=== PATIENT | male | born 1970 | race Caucasian/White ===

== ENCOUNTER 2023-06-20 16:09 | Emergency (ER) | payer BC, SELFPAY ==
[2023-06-20 16:19] VITALS: BP 132/85; PULSE 68; RESP 18; TEMP 36.8; O2SAT 99; BMI 25.8
--- NOTE | 2023-06-20 17:01 | CRLHL7_ITS ---
For Patients: As a result of the Century Cures Act, medical imaging exams and procedure reports are released immediately into your electronic medical record. You may view this report before your referring provider. If you have questions, please contact your health care provider. INDICATION: DIZZINESS TECHNIQUE: CT of the head without contrast. Coronal and sagittal reformats. Bone and soft tissue algorithms. COMPARISON: No prior studies available for comparison at this institution. FINDINGS: No acute intracranial hemorrhage or extraaxial collection. No evidence of acute cortical infarction. No mass effect or midline shift. The ventricles and sulci are age appropriate. Orbital contents are normal. No calvarial fractures. No lytic or sclerotic osseous lesions within the calvarium or skull base. Scalp and other imaged soft tissue structures are normal. Mastoid air cells are clear. IMPRESSION: No acute intracranial abnormality. Please note that all CT scans at this facility use dose modulation, iterative reconstruction, and/or weight-based dosing when appropriate to reduce radiation dose to as low as reasonably achievable. Dictated by Hiro Villanueva MD @ 06/20/2023 7:07:27 PM (Electronically Signed)
--- NOTE | 2023-06-20 17:21 | ED.DIZZY ---
HPI - Dizziness General Date Seen: 06/20/23 Chief Complaint: Dizziness/Vertigo Stated Complaint: Dizzy spells Time Seen by Provider: 06/20/23 16:48 Source: patient Mode of arrival: ambulatory Limitations: no limitations History of Present Illness HPI Narrative: Patient is a 52-year-old male with no pertinent medical problems presenting to the emergency department for dizziness. States symptoms happened about 14:45. They have been constant since then. There worse with remove his had an do improve when he sits still. Symptoms also worsen when he stands up. He has never had symptoms like this before. This and lightheadedness when the symptoms started that has since resolved. States the dizziness feels like he is on a boat. Denies numbness, weakness, headache, vision changes, abdominal pain, nausea vomiting, diarrhea, constipation. No history of strokes. No other concerns at this time. Related Data Previous Rx's Medication Instructions Recorded meclizine 25 mg tablet 25 mg PO QID #20 tabs 06/20/23 Allergies Allergy/AdvReac Type Severity Reaction Status Date / Time No Known Drug Allergies Allergy Verified 06/20/23 16:22 Review of Systems Status of ROS: Reports: 10 or more systems reviewed and unremarkable except as noted in History and below PFSH PFS Social History Smoking Status: Never smoker Exam Narrative: Exam Narrative: Const: Well-nourished, Well-developed, in mild distress Eyes: PERRL, no conjunctival injection, and symmetrical lids HENT: Atraumatic external nose and ears. Moist mucous membranes. Neck: Symmetric, trachea midline, No thyromegaly. CVS: RRR, No murmurs or gallops. Peripheral pulses 2+ and equal in all extremities RESP: Unlabored respiratory effort. Clear to auscultation bilaterally. GI: Nontender/Nondistended, No rebound or guarding. MSK:Extremities w/o deformity, Normal Active ROM Skin: Warm, Dry. No rashes or lesions. Neuro: Normal Muscle tone, No focal neurological deficits. Psych: Awake, Alert, & Oriented x3. Appropriate mood and affect. Const: Vital Signs, click to edit/add: Vital Signs - 24 hr 06/20/23 16:19 06/20/23 19:27 Temperature 98.2 F 97.9 F Pulse Rate [Right Pulse Oximeter] 68 70 Respiratory Rate 18 16 Blood Pressure [Ri ght Upper Arm] 132/85 130/80 Pulse Oximetry 99 97 Oxygen Delivery Me thod Room Air Course Vital Signs Vital signs: Initial Vital Signs Temperature 98.2 F 06/20/23 16:19 Temperature Source Temporal Artery Scan 06/20/23 16:19 Pulse Rate 68 06/20/23 16:19 Respiratory Rate 18 06/20/23 16:19 Blood Pressure 132/85 06/20/23 16:19 Blood Pressure Mean 100 06/20/23 16:19 Blood Pressure Position Sitting 06/20/23 16:19 Pulse Oximetry 99 06/20/23 16:19 Oxygen Delivery Method Room Air 06/20/23 16:19 Vital Signs Temperature 98.2 F 06/20/23 16:19 Pulse Rate 68 06/20/23 16:19 Respiratory Rate 18 06/20/23 16:19 Blood Pressure 132/85 06/20/23 16:19 Pulse Oximetry 99 06/20/23 16:19 Oxygen Delivery Method Room Air 06/20/23 16:19 Temperature 97.9 F 06/20/23 19:27 Pulse Rate 70 06/20/23 19:27 Respiratory Rate 16 06/20/23 19:27 Blood Pressure 130/80 06/20/23 19:27 Pulse Oximetry 97 06/20/23 19:27 Oxygen Delivery Method Room Air 06/20/23 16:19 MDM - Dizziness MDM Narrative Medical decision making narrative: Patient is a 52-year-old male presents emergency department for dizziness. Says symptoms started earlier today and have been consistent. They are worse whenever he moves his head. No history of strokes. No history of somatic symptoms in the past. No current nausea. No recent falls but we will do a head CT to rule out intracranial issues. Seems unlikely to be ischemic stroke at this time. Patient also has a hints exam is more consistent with peripheral vertigo Do not believe CT is unnecessary. CBC, BMP, go with this flu, magnesium, troponin are all ordered. His lab work all returned showing no concerning abnormalities. His COVID flu negative. Patient's head CT returned showing no concerning abnormalities. After he received fluids and the meclizine his symptoms improved dramatically. He still states he has mild dizziness but is not nearly as bad. CT scan returned showing no concerning abnormalities. He is otherwise doing well at this time as well likely have BPPV considering the symptoms are worse with head movement. Could be and labyrinthitis or similar issue but either way patient can be discharged home with meclizine. Very unlikely to be a central cause at this time. Patient is discharged home agrees with this plan Lab Data Labs: Lab Results 06/20/23 06/20/23 Range/Units 17:20 17:20 WBC 11.89 H (4.50-11.00) K/uL RBC 5.37 (4.30-5.90) m/uL Hgb 15.9 (13.5-17.5) gm/dL Hct 45.5 (37.0-53.0) % MCV 85 (80-100) fL MCH 30 (26-34) pg MCHC 35 (32-36) gm/dL RDW Coeff of [place]ell 12.3 (11.5-15.5) % Plt Count 233 (140-440) K/uL Neut % (Auto) 86.0 H (42.0-72.0) % Lymph % (Auto) 7.1 L (20-44) % Jerome % (Auto) 5.6 (0.0-11.0) % Eos % (Auto) 0.3 (0.0-7.0) % Baso % (Auto) 0.3 (0.0-3.0) % Neut # (Auto) 10.20 H (1.7-7.0) K/uL Lymph # (Auto) 0.80 L (0.90-2.90) K/uL Jerome # (Auto) 0.70 (0.00-0.90) K/UL Eos # (Auto) 0.00 (0.00-0.50) K/uL Baso # (Auto) 0.00 (0.00-0.30) K/uL Abs Immat Gran (auto) 0.10 (0.00-0.30) K/uL Imm/Tot Granulo (auto) 0.7 % Sodium 140 (135-149) mmol/L Potassium 4.7 (3.6-5.1) mmol/L Chloride 102 (96-114) mmol/L Carbon Dioxide 29 (20-32) mmol/L Anion Gap 9 (7-15) mEq/L BUN 20 (7-30) mg/dL Creatinine 1.0 (0.5-1.5) mg/dL Estimated Creat Clear 85.43 Estimated GFR 90 ml/min Glucose 120 H (60-115) mg/dL Calcium 9.9 (8.4-10.6) mg/dL Magnesium 2.0 (1.5-2.6) mg/dL Troponin I Cancelled < 0.01 L SARS-CoV-2 (PCR) Negative SARS-CoV-2 (Negative) Influenza Type A (PCR) Negative PCR FLU A (Negative) Influenza Type B (PCR) Negative PCR FLU B (Negative) Imaging Data CT scan - head: Radiologist's impression: INDICATION: DIZZINESS TECHNIQUE: CT of the head without contrast. Coronal and sagittal reformats. Bone and soft tissue algorithms. COMPARISON: No prior studies available for comparison at this institution. FINDINGS: No acute intracranial hemorrhage or extraaxial collection. No evidence of acute cortical infarction. No mass effect or midline shift. The ventricles and sulci are age appropriate. Orbital contents are normal. No calvarial fractures. No lytic or sclerotic osseous lesions within the calvarium or skull base. Scalp and other imaged soft tissue structures are normal. Mastoid air cells are clear. IMPRESSION: No acute intracranial abnormality. Please note that all CT scans at this facility use dose modulation, iterative reconstruction, and/or weight-based dosing when appropriate to reduce radiation dose to as low as reasonably achievable. Dictated by Hiro Villanueva MD @ 06/20/2023 7:07:27 PM Discharge Plan Discharge Clinical Impression: Benign paroxysmal positional vertigo Qualifiers: Laterality: unspecified laterality Qualified Code(s): H81.10 - Benign paroxysmal vertigo, unspecified ear Patient Disposition: Home, Self-Care Condition: Stable Instructions: Benign Paroxysmal Positional Vertigo (DC) Additional Instructions: Take the meclizine as directed. Return for new or worsening symptoms. You can stop the meclizine when symptoms resolve. If symptoms and still there 5 days from now talk to your primary care provider for follow-up. Prescriptions: New meclizine 25 mg tablet 25 mg PO QID Qty: 20 0RF Follow Up/Referrals: Provider,Not a Local [Primary Care Provider] - Stand Alone Forms: [facility] Info Instructions
[2023-06-20 17:30] LABS: Basophils Percent Auto 0.3 % (0.0-3.0); Eosinophils Percent Auto 0.3 % (0.0-7.0); Hematocrit 45.5 % (37.0-53.0); Hemoglobin* 15.9 gm/dL (13.5-17.5); Immature Granulocytes Pct Auto 0.7 %; Lymphocytes Percent Auto 7.1 % (20-44); Mean Corpuscular HGB Conc 35 gm/dL (32-36); Mean Corpuscular Hemoglobin 30 pg (26-34); Mean Corpuscular Volume 85 fL (80-100); Monocytes Percent Auto 5.6 % (0.0-11.0); Platelet Count* 233 K/uL (140-440); RDW Coefficient of Variation % 12.3 % (11.5-15.5); Red Blood Count 5.37 m/uL (4.30-5.90); White Blood Count* 11.89 K/uL (4.50-11.00)
[2023-06-20] MEDS: MECLIZINE HCL 25 MG TABLET PO (17:39)
[2023-06-20] MEDS: LACTATED RINGERS 1000 ML 1,000 ML IV (17:39)
[2023-06-20 17:42] LABS: Slide Review Reflex No
[2023-06-20 17:45] LABS: Chloride* 102 mmol/L (96-114)
[2023-06-20 17:46] LABS: Potassium* 4.7 mmol/L (3.6-5.1); Sodium* 140 mmol/L (135-149)
[2023-06-20 17:49] LABS: Anion Gap 9 mEq/L (7-15); Blood Urea Nitrogen* 20 mg/dL (7-30); Calcium* 9.9 mg/dL (8.4-10.6); Carbon Dioxide* 29 mmol/L (20-32); Est. Creatinine Clearance* 85.43; Estimated Glomerular Filt Rate 90 ml/min; Glucose* 120 mg/dL (60-115)
[2023-06-20 18:05] LABS: Troponin I* < 0.01 ng/mL (0.01-0.04)
[2023-06-20 18:07] LABS: PCR FLU A Negative PCR FLU A (Negative); PCR FLU B Negative PCR FLU B (Negative)
[2023-06-20 18:09] LABS: SARS PCR* Negative SARS-CoV-2 (Negative)
[2023-06-20 19:27] VITALS: BP 130/80; PULSE 70; RESP 16; TEMP 36.6; O2SAT 97
== END 2023-06-20 19:35 | disposition home or self-care (01) ==
PROVIDERS: Emergency Provider Student in an Organized Health Care Education/Training Program
DX: H81.13 Benign paroxysmal vertigo, bilateral (principal)
CPT/HCPCS: 36415; 70450; 80048; 83735; 84484; 85025; 87631; 99283; 99284; A9270; J7120